=== PATIENT | female | born 1970 | race Two or more races ===

== ENCOUNTER 2024-07-29 15:15 | Outpatient (REF) | payer MEDICARE, OTHER, SELFPAY | END 2024-07-29 15:16 | disposition home or self-care (01) | LOC: HO.MAMMO 15:15 | PROVIDERS: Visit Provider Hospitalist | DX: Z12.31 Encounter for screening mammogram for malignant neoplasm of breast (principal) | CPT/HCPCS: 77063; 77067 ==

== ENCOUNTER → 2024-07-29 15:30 | Outpatient (BNV) | payer MEDICARE, OTHER, SELFPAY | PROVIDERS: Visit Provider Internal Medicine | DX: Z12.31 Encounter for screening mammogram for malignant neoplasm of breast (principal) | CPT/HCPCS: 77063; 77067 ==